=== PATIENT | male | born 1965 | race Caucasian/White ===

== ENCOUNTER 2022-05-15 09:25 | Outpatient (CLI) | payer OTHER | END 2022-05-15 09:26 | disposition home or self-care (01) | LOC: CSHRAD 09:25 | PROVIDERS: ATTEND Student in an Organized Health Care Education/Training Program | DX: M25.551 Pain in right hip (principal); M54.50 Low back pain, unspecified; Z96.641 Presence of right artificial hip joint; M43.16 Spondylolisthesis, lumbar region | CPT/HCPCS: 72100 ==